=== PATIENT | female | born 1975 | race Caucasian/White ===

== ENCOUNTER 2017-01-28 21:10 | Emergency (ER) | payer OTHER ==
[2017-01-28 21:32] VITALS: BP 157/88; PULSE 80; TEMP 98.4; BMI 25.4
[2017-01-28 22:51] LABS: URINE APPEARANCE CLEAR; URINE BILIRUBIN NEGATIVE (NEGATIVE); URINE COLOR STRAW; URINE GLUCOSE (UA) NEGATIVE (NEGATIVE); URINE KETONE NEGATIVE (NEGATIVE); URINE LEUK ESTERASE NEGATIVE (NEGATIVE); URINE NITRITE NEGATIVE (NEGATIVE); URINE PROTEIN NEGATIVE (NEGATIVE); URINE UROBILINOGEN NEGATIVE E.U./dl (0.2-1.0)
[2017-01-28 22:53] LABS: URINE BLOOD 2+ (NEGATIVE)
[2017-01-28 22:55] LABS: URINE RBC <1 /hpf (0-3); URINE WBC <1 /hpf (3-5)
--- NOTE | 2017-01-28 23:21 | PDOC ---
History of Present Illness - General History Source: Patient Exam Limitations: No Limitations - History of Present Illness Initial Comments: 01/28/17 23:54 The patient is a 41 year old female who is 10 weeks , A1, with no significant past medical history, who presents to the emergency department with vaginal bleeding and back pain. She reports that her vaginal bleeding is mild in nature. She denies any vaginal discharge. She describes her back pain as ranging from mild to moderate, without radiation or modifying factors. The patient denies chest pain, shortness of breath, headache and dizziness. Denies fever, chills, nausea, vomit, diarrhea and constipation. Denies dysuria, frequency, urgency and hematuria. LMP: 11/16/2016 Allergies: None Past surgical history: Social history: No alcohol, tobacco or drug use reported <Juan Gomez - Last Filed: 01/29/17 00:05> <Marichuy Rust - Last Filed: 01/29/17 00:22> - General Chief Complaint: Vaginal Bleeding Stated Complaint: VAGINAL BLEED 10WKS Time Seen by Provider: 01/28/17 21:36 Past History <Juan Gomez - Last Filed: 01/29/17 00:05> - Past Medical History Anemia: No Asthma: No Cancer: No Cardiac Disorders: No CVA: No COPD: No DVT: No Dementia: No Diabetes: No Dialysis: No GI Disorders: No Disorders: No HTN: No Hypercholesterolemia: No HIV: No Kidney Stones: No Liver Disease: No Psychiatric Problems: No Suicide Attempt (Hx): No Seizures: No Thyroid Disease: No Lung CA: No - Surgical History Abdominal Surgery: No Appendectomy: No Cardiac Surgery: No Cholecystectomy: No Gastric Stapling: No GI Surgery: No Lung Surgery: No Neurologic Surgery: No - Reproductive History Is Patient Now?: Yes - Psycho/Social/Smoking Cessation Hx Anxiety: No Suicidal Ideation: No Smoking History: Never smoked Have you smoked in the past 12 months: No Information on smoking cessation initiated: No Hx Alcohol Use: Yes Drug/Substance Use Hx: No Substance Use Type: None <Marichuy Rust - Last Filed: 01/29/17 00:22> - Past Medical History Allergies/Adverse Reactions: Allergies Allergy/AdvReac Type Severity Reaction Status Date / Time No Known Allergies Allergy Verified 01/28/17 21:31 Home Medications: Ambulatory Orders NK [No Known Home Medication] 05/09/14 Review of Systems - Review of Systems Able to Perform ROS?: Yes Comments:: 01/28/17 23:54 GENERAL/CONSTITUTIONAL: No fever or chills. No weakness. HEAD, EYES, EARS, NOSE AND THROAT: No change in vision. No ear pain or discharge. No sore throat. CARDIOVASCULAR: No chest pain or shortness of breath RESPIRATORY: No cough, wheezing, or hemoptysis. GASTROINTESTINAL: No nausea, vomiting, diarrhea or constipation. GENITOURINARY: +Vaginal bleeding. No dysuria, frequency, or change in urination. MUSCULOSKELETAL: +Back pain. No joint or muscle swelling or pain. No neck pain. SKIN: No rash NEUROLOGIC: No headache, vertigo, loss of consciousness, or change in strength/ sensation. ENDOCRINE: No increased thirst. No abnormal weight change HEMATOLOGIC/LYMPHATIC: No anemia, easy bleeding, or history of blood clots. ALLERGIC/IMMUNOLOGIC: No hives or skin allergy. <Juan Gomez - Last Filed: 01/29/17 00:05> *Physical Exam - Vital Signs Last Vital Signs Temp Pulse Resp BP Pulse Ox 98.4 F 80 18 157/88 100 01/28/17 21:31 01/28/17 21:31 01/28/17 21:31 01/28/17 21:31 01/28/17 21:31 - Physical Exam Comments: 01/28/17 23:54 GENERAL: Awake, alert, and fully oriented, in no acute distress HEAD: No signs of trauma, normocephalic, atraumatic EYES: PERRLA, EOMI, sclera anicteric, conjunctiva clear ENT: Auricles normal inspection, hearing grossly normal, nares patent, oropharynx clear without exudates. Moist mucosa NECK: Normal ROM, supple, no lymphadenopathy, JVD, or masses LUNGS: No distress, speaks full sentences, clear to auscultation bilaterally HEART: Regular rate and rhythm, normal S1 and S2, no murmurs, rubs or gallops, peripheral pulses normal and equal bilaterally. ABDOMEN: Soft, nontender, normoactive bowel sounds. No guarding, no rebound. No masses EXTREMITIES: Normal inspection, Normal range of motion, no edema. No clubbing or cyanosis. NEUROLOGICAL: Cranial nerves II through XII grossly intact. Normal speech, normal gait, no focal sensorimotor deficits SKIN: Warm, Dry, normal turgor, no rashes or lesions noted. <Juan Gomez - Last Filed: 01/29/17 00:05> - Vital Signs Last Vital Signs Temp Pulse Resp BP Pulse Ox 98.4 F 80 18 157/88 100 01/28/17 21:31 01/28/17 21:31 01/28/17 21:31 01/28/17 21:31 01/28/17 21:31 <Marichuy Rust - Last Filed: 01/29/17 00:22> ED Treatment Course - ADDITIONAL ORDERS Additional order review: Laboratory Results 01/28/17 01/28/17 22:40 22:40 Beta HCG, Quant [id number] Urine Color Straw Urine Appearance Clear Urine pH 6.0 Ur Specific [place] 1.011 Urine Protein Negative Urine Glucose (UA) Negative Urine Ketones Negative Urine Blood 2+ H Urine Nitrite Negative Urine Bilirubin Negative Urine Urobilinogen Negative Ur Leukocyte Esterase Negative Urine RBC <1 Urine WBC <1 Ur Epithelial Cells Rare - RADIOLOGY Radiograph Interpretation: 01/29/17 00:05 Abdominal ultrasound Reviewed by: Dr. Raffaele Cook Impression: Live IUP with estimated age of 10 weeks, without definite abnormalities. Nonvisualization of the ovaries. <Juan Gomez - Last Filed: 01/29/17 00:05> - ADDITIONAL ORDERS Additional order review: Laboratory Results 01/28/17 22:40 Urine Color Straw Urine Appearance Clear Urine pH 6.0 Ur Specific [place] 1.011 Urine Protein Negative Urine Glucose (UA) Negative Urine Ketones Negative Urine Blood 2+ H Urine Nitrite Negative Urine Bilirubin Negative Urine Urobilinogen Negative Ur Leukocyte Esterase Negative Urine RBC <1 Urine WBC <1 Ur Epithelial Cells Rare <Marichuy Rust - Last Filed: 01/29/17 00:22> Medical Decision Making - Medical Decision Making 01/29/17 00:18 pt denies any history of needing rhogram injection after childbirth pelvic US reveals SL IUP 10 weeks zero days with good heart tones of 168 plan- pt to follow up with her vehicle body sander <Marichuy Rust - Last Filed: 01/29/17 00:22> *DC/Admit/Observation/Transfer - Attestations Scribe Attestion: 01/28/17 23:55 Documentation prepared by Juan Gomez, acting as medical device sales consultant for Marichuy Rust MD <Juan Gomez - Last Filed: 01/29/17 00:05> <Marichuy Rust - Last Filed: 01/29/17 00:22> Diagnosis at time of Disposition: Threatened - Discharge Dispostion Disposition: HOME Condition at time of disposition: Stable - Referrals Referrals: Sudhakar Hernandez MD [Primary Care Provider] - - Patient Instructions Printed Discharge Instructions: DI for Threatened Additional Instructions: please continue your care with your vehicle body sander Print Language: PARAGUAYAN
== END 2017-01-29 00:49 | disposition home or self-care (01) ==
LOC: JER 21:10
DX: O20.0 Threatened abortion (principal); Z3A.10 10 weeks gestation of pregnancy
CPT/HCPCS: 36415; 76801-TC; 81003; 81015; 84702; 99284-25

== ENCOUNTER 2017-08-16 12:35 | Inpatient (IN) | payer OTHER ==
[~2017-08-16 12:35] MED LIST: CITRIC ACID/SODIUM CITRATE 30 ML UNIT-DOSE CUP PO ONE; ELECTROLYTE-148 SOLN 1,000 ML IV SCH
[2017-08-16] MEDS: ELECTROLYTE-148 SOLN 1,000 ML IV SCH (13:10)
[2017-08-16 13:13] VITALS: BMI 31.7
[2017-08-16] MEDS ORDERED: morphine SULFATE/Preservative Free 0.5 MG/ML (1cc Syringe) EP ONE (14:56)
[2017-08-16] MEDS ORDERED: ONDANSETRON 4 MG/2 ML VIAL IVPB PRN (14:56)
[2017-08-16] MEDS ORDERED: IBUPROFEN 800 MG/8 ML IJ IVPB PRN ×2 (14:57→16:35)
--- NOTE | 2017-08-16 16:23 | HP ---
Past Medical History - Primary Care Physician PCP:: Fracisco Tian - Admission Chief Complaint: 39 weeks, previous c/s, AMA, voluntary sterlization .GDM History of Present Illness: 42 yo f edc by sono 09/01/17 with 2 previous c/s, hx og GDM, on glyberide , for repeat c/s and tubal ligation. risks of c/s and tubal ligation discussed , ulternatives explained History Source: Patient Limitations to Obtaining History: Language Barrier - Past Medical History ...: 4 ...Para: 2 ...Term: 2 ...: 0 ...Spon : 1 ...Induced : 0 ...Multiple Gestation: 0 ...LMP: 11/16/16 ... Weeks Gestation by Dates: 39.0 ...EDC by Dates: 08/23/17 ...EDC by Sono: 08/23/17 Endocrine: Yes: Diabetes Mellitus - Past Surgical History Past Surgical History: Yes: Hx Myomectomy: No Hx Transabdominal Cerclage: No - Smoking History Smoking history: Never smoked Have you smoked in the past 12 months: No - Alcohol/Substance Use Hx Alcohol Use: No - Social History Usual Living Arrangement: Yes: With Spouse History of Recent Travel: No Home Medications - Allergies Allergies/Adverse Reactions: Allergies Allergy/AdvReac Type Severity Reaction Status Date / Time No Known Allergies Allergy Verified 08/16/17 13:13 - Home Medications Home Medications: Ambulatory Orders Ferrous Sulfate [Feosol] 325 mg PO DAILY 08/16/17 Glyburide/Metformin HCl [Glyburide-Metformin 2.5-500 mg] 2.5 mg PO DAILY Vitamins (Sjr) - 1 tab PO DAILY 08/16/17 Review of Systems - Review of Systems Constitutional: reports: No Symptoms Eyes: reports: No Symptoms HENT: reports: No Symptoms Neck: reports: No Symptoms Cardiovascular: reports: No Symptoms Respiratory: reports: No Symptoms Gastrointestinal: reports: No Symptoms Genitourinary: reports: No Symptoms Breasts: reports: No Symptoms Reported Musculoskeletal: reports: No Symptoms Integumentary: reports: No Symptoms Neurological: reports: No Symptoms Endocrine: reports: No Symptoms Hematology/Lymphatic: reports: No Symptoms Psychiatric: reports: No Symptoms Physical Exam - Maternity Vital Signs: Vital Signs Temperature 98.4 F 08/16/17 12:50 Pulse Rate 80 08/16/17 12:50 Respiratory Rate 20 08/16/17 12:50 Blood Pressure 135/82 08/16/17 12:50 O2 Sat by Pulse Oximetry (%) Constitutional: Yes: Well Nourished, No Distress, Calm Eyes: Yes: WNL, Conjunctiva Clear, EOM Intact HENT: Yes: WNL, Atraumatic, Normocephalic Neck: Yes: WNL, Supple, Trachea Midline Cardiovascular: Yes: WNL, Regular Rate and Rhythm Breast(s): Yes: WNL - Abdominal Exam/OB Fundal Height: 40 Number of Fetuses: Single Presentation: Vertex Contractions: No Intensity: Unaware Heart Rate Location: [facility] Category: I Accelerations: Uniform Decelerations: None - Vaginal Exam/OB Vaginal Bleediing: No Speculum Exam: No Dilatation (cm): closed Effacement (%): 0 Amniotic Membrane Status: Intact Presentation: Vertex/Position Station: -3 - Physical Exam Musculoskeletal: Yes: WNL Extremities: Yes: WNL Edema: Yes Edema: LLE: Trace, RLE: Trace Deep Tendon Reflex Grade: Normal +2 Psychiatric: Yes: WNL Hemorrhage Risk Assessment - Risk Factors Medium Risk Factors: Yes: Prior , uterine surgery,or multiple laparotomies Risk Score: 1 Risk Level: Medium Risk Problem List - Problems (1) with 39 completed weeks gestation Code(s): Z3A.39 - 39 WEEKS GESTATION OF (2) Previous section complicating Code(s): O34.219 - MATERNAL CARE FOR UNSP TYPE SCAR FROM PREVIOUS DEL (3) Gestational diabetes mellitus (GDM) Code(s): O24.419 - GESTATIONAL DIABETES MELLITUS IN , UNSP CONTROL Qualifiers: Gestational diabetes mellitus control: oral hypoglycemic-controlled Trimester: third trimester Qualified Code(s): O24.415 - Gestational diabetes mellitus in , controlled by oral hypoglycemic drugs; O24.415 - Gestational diabetes mellitus in , controlled by oral hypoglycemic drugs (4) Sterilization Code(s): Z30.2 - ENCOUNTER FOR STERILIZATION (5) Advanced maternal age (AMA) in Code(s): DXX8632 - Assessment/Plan admit for repeat c/s and BTL, risks discussed,
[2017-08-16] MEDS ORDERED: WITCH HAZEL 50% (TUCKS) 40 PAD/JAR PAD TP PRN (16:35)
[2017-08-16] MEDS ORDERED: BENZOCAINE 20% 57 GM BOTTLE TP PRN (16:35)
[2017-08-16] MEDS ORDERED: BENZOCAINE 28 GM HEMORRHOIDAL OINTMENT PR PRN (16:35)
[2017-08-16] MEDS ORDERED: METHYLERGONOVINE MALEATE 0.2 MG/1 ML AMP IM PRN (16:35)
[2017-08-16] MEDS ORDERED: diphenhydrAMINE HCL 25 MG CAPSULE (FP) PO PRN (16:35)
[2017-08-16] MEDS ORDERED: OXYTOCIN 20 UNITS in 0.9% NS 1,000 ML IV SCH (16:45)
[2017-08-16] MEDS ORDERED: DEXTROSE 5%-LACTATED RINGERS 1,000 ML IV SCH (16:45)
--- NOTE | 2017-08-16 17:31 | OP ---
DATE OF OPERATION: 08/16/2017 PREOPERATIVE DIAGNOSES: , 39 weeks, previous section, advanced maternal age, voluntary sterilization, and gestational diabetes. POSTOPERATIVE DIAGNOSES: , 39 weeks, previous section, advanced maternal age, voluntary sterilization, and gestational diabetes. PROCEDURE: Repeat low-segment transverse section and bilateral tubal ligation. SURGEON: Leonard Tian MD CASING OPERATOR: HERB Mclaughlin ANESTHESIA: Spinal. ANESTHESIOLOGIST: Cony Mcwilliams MD ESTIMATED BLOOD LOSS: 500 mL DESCRIPTION OF OPERATION: Patient was taken to the operating room. Under adequate spinal anesthesia, abdomen and perineum were prepped and draped. Pfannenstiel abdominal skin incision was made. Abdominal wall was cut layer by layer until peritoneum was exposed and incised. Upon entering the abdominal cavity, lower uterine segment was identified and uterovesical fold of peritoneum established. Bladder was pushed down. A lower transverse incision was made. Incision extended laterally. Amniotic sac was entered; clear fluid. Head delivered. Nasopharynx was suctioned, and live baby girl was delivered from ROT position. Placenta was delivered manually. Uterine cavity was cleaned of remaining tissue. Then, uterine incision was closed in 2 layers, first layer with 0 Biosyn continuous suture, the second layer with 0 Biosyn imbricating the first layer. Bladder flap was closed with 0 Biosyn continuous suture. Both tubes and ovaries were checked, were normal. No active bleeding was seen rt tube grasped with babcok clamp, dobly tied with 2.0 plains tie, portion of tubes removed , endosalpinx was cauterized, same procedure repeated for oppiste tube.. All the lap pads, sponge, and instrument counts were correct. Then, peritoneum was closed with 0 Biosyn continuous suture. Muscles were brought together with interrupted suture of 0 Biosyn. Fascia was closed with 0 Biosyn continuous suture, subcutaneous fat with interrupted suture of 0 Biosyn, and the skin was closed with zaid. Patient tolerated the procedure well, left the OR in good condition. LEONARD TIAN M.D. /[id number] MTDD
[2017-08-16] MEDS ORDERED: CEFAZOLIN 1 GM/D5W 50 ML IVPB SCH (18:00)
[2017-08-16] MEDS: CEFAZOLIN 1 GM/D5W 50 ML IVPB SCH (23:42)
[2017-08-17] MEDS: CEFAZOLIN 1 GM/D5W 50 ML IVPB SCH (06:10)
--- NOTE | 2017-08-17 08:07 | PN ---
Progress Note (short form) - Note Progress Note: pod 1 doing well, no c/o Last Vital Signs Temp Pulse Resp BP Pulse Ox 98.6 F 82 20 117/76 100 08/17/17 06:00 08/17/17 06:00 08/17/17 07:00 08/17/17 06:00 08/16/17 17:00 abdomen soft, no distension, no cva incision dry, clean no calf tenderness no excess vaginal bleeding plan ambulate , advance diet. cbc Problem List - Problems (1) with 39 completed weeks gestation Code(s): Z3A.39 - 39 WEEKS GESTATION OF (2) Previous section complicating Code(s): O34.219 - MATERNAL CARE FOR UNSP TYPE SCAR FROM PREVIOUS DEL (3) Gestational diabetes mellitus (GDM) Code(s): O24.419 - GESTATIONAL DIABETES MELLITUS IN , UNSP CONTROL Qualifiers: Gestational diabetes mellitus control: oral hypoglycemic-controlled Trimester: third trimester Qualified Code(s): O24.415 - Gestational diabetes mellitus in , controlled by oral hypoglycemic drugs; O24.415 - Gestational diabetes mellitus in , controlled by oral hypoglycemic drugs (4) Sterilization Code(s): Z30.2 - ENCOUNTER FOR STERILIZATION (5) Advanced maternal age (AMA) in Code(s): UCE5226 -
--- NOTE | 2017-08-17 08:25 | PN ---
Progress Note (short form) - Note Progress Note: Post op day#1.S/P C section with BTL under spinal anesthesia with duramorph uneventful.Patient stable and c/o little pain for which she is on medication.No any anesthesia related problem.Patient DC from the anesthesia care.
[2017-08-17] MEDS: IBUPROFEN 600 MG TABLET (FP) PO PRN ×2 (09:46→14:32)
[2017-08-17] MEDS: SIMETHICONE 80 MG TAB.CHEW (FP) PO PRN ×3 (09:46→20:32)
[2017-08-17] MEDS: ENOXAPARIN NA (PORCINE) 40 MG/0.4 ML DISP.SYRIN SQ SCH (09:47)
[2017-08-17] MEDS ORDERED: FLU VACC QS2017-18 36MOS UP/PF 60 MCG/0.5 ML SYRINGE IM ONE (10:00)
[2017-08-17] MEDS ORDERED: DIPHTH,PERTUSS(ACELL),TET 0.5 ML DISP.SYRIN IM ONE (10:00)
[2017-08-17 13:49] LABS: BASOPHIL 0.7 % (0-2.0); EOSINOPHIL 1.3 % (0-4.5); MCH 29.2 pg (25.7-33.7); MCHC 32.6 g/dl (32.0-36.0); MEAN CELL VOLUME 89.7 fl (80-96); MEAN PLT VOLUME 9.5 fl (7.5-11.1); NEUTROPHILS 76.8 % (42.8-82.8); PLATELET COUNT 154 K/MM3 (134-434); RDW 15.9 % (11.6-15.6); WHITE BLOOD COUNT 12.5 K/mm3 (4.0-10.0)
[2017-08-17] MEDS: oxyCODONE HCL 5 MG TABLET PO PRN ×2 (14:31→20:30)
[2017-08-17] MEDS ORDERED: BISACODYL 10 MG SUPP.RECT PR PRN (16:35)
[2017-08-18] MEDS: IBUPROFEN 600 MG TABLET (FP) PO PRN ×3 (05:14→20:25)
[2017-08-18] MEDS: oxyCODONE HCL 5 MG TABLET PO PRN ×3 (05:14→20:28)
[2017-08-18] MEDS: SIMETHICONE 80 MG TAB.CHEW (FP) PO PRN ×3 (05:14→20:29)
--- NOTE | 2017-08-18 07:49 | PN ---
Post Progress Note - Subjective Subjective: 42 yo Para 3 status post repeat , seen and evaluated. Doing well. Post Day: 2 Type of Delivery: Repeat C/S Vital Signs: Vital Signs Temperature 97.4 F L 08/18/17 07:16 Pulse Rate 69 08/18/17 07:16 Respiratory Rate 18 08/18/17 07:16 Blood Pressure 120/68 08/18/17 07:16 O2 Sat by Pulse Oximetry (%) 100 08/16/17 17:00 Breast Exam: Yes: Soft Uterus: Yes: Fundus Firm Incision: Yes: Dressing dry and intact Abdomen/GI: Yes: Abdomen soft Lochia: Yes: Rubra Lochia, amount: Small Extremities: Yes: Calves non-tender Perineum: Yes: Intact - Labs Labs: CBC WBC 12.5 K/mm3 (4.0-10.0) H 08/17/17 08:00 RBC 4.20 M/mm3 (3.60-5.2) 08/17/17 08:00 Hgb 12.3 GM/dL (10.7-15.3) D 08/17/17 08:00 Hct 37.6 % (32.4-45.2) 08/17/17 08:00 MCV 89.7 fl (80-96) 08/17/17 08:00 MCH 29.2 pg (25.7-33.7) 08/17/17 08:00 MCHC 32.6 g/dl (32.0-36.0) 08/17/17 08:00 RDW 15.9 % (11.6-15.6) H 08/17/17 08:00 Plt Count 154 K/MM3 (134-434) 08/17/17 08:00 MPV 9.5 fl (7.5-11.1) 08/17/17 08:00 Neutrophils % 76.8 % (42.8-82.8) 08/17/17 08:00 Lymphocytes % 12.2 % (8-40) D 08/17/17 08:00 Monocytes % 9.0 % (3.8-10.2) 08/17/17 08:00 Eosinophils % 1.3 % (0-4.5) 08/17/17 08:00 Basophils % 0.7 % (0-2.0) 08/17/17 08:00 Problem List - Problems (1) Status post repeat low transverse section Code(s): Z98.891 - HISTORY OF UTERINE SCAR FROM PREVIOUS SURGERY Assessment/Plan Status post Stable Continue routine post op care
[2017-08-18] MEDS: ENOXAPARIN NA (PORCINE) 40 MG/0.4 ML DISP.SYRIN SQ SCH (11:20)
[2017-08-18] MEDS: ACETAMINOPHEN 325 MG TABLET (FP) PO PRN (16:24)
[2017-08-18] MEDS ORDERED: SENNOSIDES/DOCUSATE COMBO (SENNA PLUS) TABLET (UD) PO PRN (22:00)
[2017-08-19] MEDS: oxyCODONE HCL 5 MG TABLET PO PRN ×3 (04:45→16:22)
[2017-08-19] MEDS: SIMETHICONE 80 MG TAB.CHEW (FP) PO PRN ×4 (04:45→21:02)
[2017-08-19] MEDS: IBUPROFEN 600 MG TABLET (FP) PO PRN ×3 (04:45→21:01)
--- NOTE | 2017-08-19 06:23 | PN ---
Post Progress Note - Subjective Subjective: 42 yo Para 3, status post repeat , seen and evaluated. Doing well. Post Day: 3 Type of Delivery: Repeat C/S Vital Signs: Vital Signs Temperature 97.9 F 08/18/17 20:44 Pulse Rate 67 08/18/17 20:44 Respiratory Rate 18 08/18/17 20:44 Blood Pressure 120/65 08/18/17 20:44 O2 Sat by Pulse Oximetry (%) 100 08/16/17 17:00 Breast Exam: Yes: Soft Uterus: Yes: Fundus Firm Incision: Yes: Dressing dry and intact Abdomen/GI: Yes: Abdomen soft, Tolerating PO Lochia: Yes: Rubra Lochia, amount: Small Extremities: Yes: Calves non-tender Perineum: Yes: Intact Activity: Ambulating - Labs Labs: CBC WBC 12.5 K/mm3 (4.0-10.0) H 08/17/17 08:00 RBC 4.20 M/mm3 (3.60-5.2) 08/17/17 08:00 Hgb 12.3 GM/dL (10.7-15.3) D 08/17/17 08:00 Hct 37.6 % (32.4-45.2) 08/17/17 08:00 MCV 89.7 fl (80-96) 08/17/17 08:00 MCH 29.2 pg (25.7-33.7) 08/17/17 08:00 MCHC 32.6 g/dl (32.0-36.0) 08/17/17 08:00 RDW 15.9 % (11.6-15.6) H 08/17/17 08:00 Plt Count 154 K/MM3 (134-434) 08/17/17 08:00 MPV 9.5 fl (7.5-11.1) 08/17/17 08:00 Neutrophils % 76.8 % (42.8-82.8) 08/17/17 08:00 Lymphocytes % 12.2 % (8-40) D 08/17/17 08:00 Monocytes % 9.0 % (3.8-10.2) 08/17/17 08:00 Eosinophils % 1.3 % (0-4.5) 08/17/17 08:00 Basophils % 0.7 % (0-2.0) 08/17/17 08:00 Problem List - Problems (1) Status post repeat low transverse section Code(s): Z98.891 - HISTORY OF UTERINE SCAR FROM PREVIOUS SURGERY Assessment/Plan Status post Stable Continue routine post op care
[2017-08-19 08:43] LABS: BASOPHIL 0.6 % (0-2.0); EOSINOPHIL 3.8 % (0-4.5); MCH 29.3 pg (25.7-33.7); MCHC 33.1 g/dl (32.0-36.0); MEAN CELL VOLUME 88.8 fl (80-96); MEAN PLT VOLUME 8.8 fl (7.5-11.1); NEUTROPHILS 62.2 % (42.8-82.8); PLATELET COUNT 182 K/MM3 (134-434); RDW 15.3 % (11.6-15.6); WHITE BLOOD COUNT 8.9 K/mm3 (4.0-10.0)
[2017-08-19] MEDS: ENOXAPARIN NA (PORCINE) 40 MG/0.4 ML DISP.SYRIN SQ SCH (09:44)
[2017-08-19] MEDS: ACETAMINOPHEN 325 MG TABLET (FP) PO PRN ×2 (09:44→21:00)
[2017-08-19] MEDS: ELECTROLYTE-148 SOLN 1,000 ML IV SCH (19:42)
[2017-08-19 23:14] VITALS: PULSE 70
[2017-08-20 07:25] VITALS: BP 128/84; TEMP 98.1
[2017-08-20] MEDS: ENOXAPARIN NA (PORCINE) 40 MG/0.4 ML DISP.SYRIN SQ SCH (09:13)
[2017-08-20] MEDS: ACETAMINOPHEN 325 MG TABLET (FP) PO PRN (09:13)
[2017-08-20] MEDS: IBUPROFEN 600 MG TABLET (FP) PO PRN (09:13)
[2017-08-20] MEDS: SIMETHICONE 80 MG TAB.CHEW (FP) PO PRN (09:14)
--- NOTE | 2017-08-20 09:36 | DS ---
Physical Exam-KNITTED GOODS SHAPER Vital Signs: Vital Signs Temperature 98.1 F 08/20/17 07:24 Pulse Rate 70 08/19/17 22:00 Respiratory Rate 18 08/20/17 07:24 Blood Pressure 128/84 08/20/17 07:24 O2 Sat by Pulse Oximetry (%) 100 08/16/17 17:00 Constitutional: Yes: Well Nourished Eyes: Yes: Conjunctiva Clear Neck: Yes: Supple Cardiovascular: Yes: Regular Rate and Rhythm Respiratory: Yes: Regular, CTA Bilaterally Gastrointestinal: Yes: Normal Bowel Sounds Vaginal Exam: Yes: Normal Cervix: Yes: Normal Uterus: Yes: Normal Breast(s): Yes: WNL Wound/Incision: Yes: Clean/Dry, [place] Intact Neurological: Yes: Alert, Oriented ...Motor Strength: WNL Psychiatric: Yes: Alert, Oriented Labs: CBC, BMP 08/19/17 07:35 Delivery - Delivery Type of Anesthesia: Spinal Episiotomy/Laceration: None EBL (cc): 500 Delivery, Single - Stages of Labor Date of Delivery: 08/16/17 Time of Delivery: 15:32 Time Placenta Delivered: 15:33 - Condition of Infant Trailer Body Assembler/Lemon Picker Present: Yes Name: Serene Nelson Infant Gender: Female Weight: 7 lb 5 oz Position: Right, OT Total Hours ROM (Hrs/Mins): 0hrs 2min - 1 Minute Total Score: 9 5 Minutes Total Score: 9 - Feeding Plan Initial Plan: Elected not to breastfeed exclusively throughout hospitalization Discharge Summary Reason For Visit: C SECTION Current Active Problems Advanced maternal age (AMA) in (Acute) Gestational diabetes mellitus (GDM) (Acute) with 39 completed weeks gestation (Acute) Previous section complicating (Acute) Status post repeat low transverse section (Acute) Sterilization (Acute) Procedures: Principal: Repeat Low Transverse Hospital Course: Routine Post op care Condition: Good - Instructions Diet, Activity, Other Instructions: Regular diet No driving, no lifting for 4 weeks F/U in clinic for zaid removal in 1 week Referrals: [facility] [Outside] - Home Medications Comprehensive Discharge Medication List: Ambulatory Orders Ferrous Sulfate [Feosol] 325 mg PO DAILY 08/16/17 Glyburide/Metformin HCl [Glyburide-Metformin 2.5-500 mg] 2.5 mg PO DAILY Vitamins (Sjr) - 1 tab PO DAILY 08/16/17
--- NOTE | 2017-08-20 09:42 | DS ---
Physical Exam-CHIEF COOK Vital Signs: Vital Signs Temperature 98.1 F 08/20/17 07:24 Pulse Rate 70 08/19/17 22:00 Respiratory Rate 18 08/20/17 07:24 Blood Pressure 128/84 08/20/17 07:24 O2 Sat by Pulse Oximetry (%) 100 08/16/17 17:00 Constitutional: Yes: Well Nourished Eyes: Yes: Conjunctiva Clear HENT: Yes: Atraumatic Neck: Yes: Supple Cardiovascular: Yes: Regular Rate and Rhythm Respiratory: Yes: Regular Gastrointestinal: Yes: Normal Bowel Sounds Pelvis: Yes: WNL Vaginal Exam: Yes: Normal Cervix: Yes: Normal Uterus: Yes: Normal Wound/Incision: Yes: Clean/Dry, [place] Intact Neurological: Yes: Alert, Oriented ...Motor Strength: WNL Psychiatric: Yes: Alert, Oriented Labs: CBC, BMP 08/19/17 07:35 Delivery - Delivery Type of Anesthesia: Spinal Episiotomy/Laceration: None EBL (cc): 500 Delivery, Single - Stages of Labor Date of Delivery: 08/16/17 Time of Delivery: 15:32 Time Placenta Delivered: 15:33 - Condition of Enrobing Machine Feeder/Mail Processing Associate Present: Yes Name: Serene Nelson Infant Gender: Female Weight: 7 lb 5 oz Position: Right, OT Total Hours ROM (Hrs/Mins): 0hrs 2min - 1 Minute Total Score: 9 5 Minutes Total Score: 9 - [place] Feeding Plan Initial Plan: Elected not to breastfeed exclusively throughout hospitalization Discharge Summary Reason For Visit: C SECTION Current Active Problems Advanced maternal age (AMA) in (Acute) Gestational diabetes mellitus (GDM) (Acute) with 39 completed weeks gestation (Acute) Previous section complicating (Acute) Status post repeat low transverse section (Acute) Sterilization (Acute) - Instructions Referrals: [facility] ([facility] [place]) [Outside] - Home Medications Comprehensive Discharge Medication List: Ambulatory Orders Ferrous Sulfate [Feosol] 325 mg PO DAILY 08/16/17 Glyburide/Metformin HCl [Glyburide-Metformin 2.5-500 mg] 2.5 mg PO DAILY Vitamins (Sjr) - 1 tab PO DAILY 08/16/17
--- NOTE | 2017-08-22 13:25 | PATH ---
Surgical Pathology Report Patient Name: DREA TERAN Med. Rec. #: [id number] /Age/Gender: 1975 (Age: 42) / F Account: [id number] Location: [facility] OBS/ASSISTANT SHIFT SUPERVISOR Taken: 08/16/2017 Received: 08/17/2017 Reported: 08/22/2017 Physicians: Fracisco Tian M.D. Specimen(s) Received A: PLACENTA B: LEFT FALLOPIAN TUBE C: RIGHT FALLOPIAN TUBE Clinical History Final Diagnosis A. PLACENTA, DELIVERY: FOCALLY DISRUPTED THIRD TRIMESTER PLACENTA WITH 3 VESSEL UMBILICAL CORD AND UNREMARKABLE PLACENTAL MEMBRANES. B. LEFT FALLOPIAN TUBE, PARTIAL SALPINGECTOMY: FULL LUMINAL PORTION OF UNREMARKABLE FALLOPIAN TUBE. C. RIGHT FALLOPIAN TUBE, PARTIAL SALPINGECTOMY: FULL LUMINAL PORTION OF UNREMARKABLE FALLOPIAN TUBE. Electronically Signed Sanford Edouard M.D. Gross Description A. The specimen is received fresh labeled placenta and is a 556 gram, 19.5 x 14.0 x 3.3 cm. placenta with attached membranes and umbilical cord. The attached membranes are lopez, translucent with focal opacities and insert marginally. The umbilical cord measures 44 cm. in length and averages 1.2 cm. in diameter. The cord inserts eccentrically, 4.5 cm. to the nearest margin. No true knots or strictures are identified. Cut surface of the umbilical cord reveals 3 vessels. The surface is tillman-blue with minimal fibrin deposition and appropriate caliber vessels. The maternal surface is red-brown with focal defects. Sectioning reveals red-brown, spongy parenchyma. No lesions are identified. New Accounts Representative sections are submitted in three cassettes as follows: 1- membrane rolls and umbilical cord; 2-3- full thickness sections of placenta. B. Received in formalin labeled "portion of left fallopian tube," is a 1.4 cm in length portion of fallopian tube. No fimbria are present. The outer surface is lopez-cooley and smooth. Sectioning reveals an unremarkable lumen. New Accounts Representative sections are submitted in one cassette. C. Received in formalin labeled "portion of right fallopian tube," is a 1.7 cm in length portion of fallopian tube. No fimbria are present. The outer surface is lopez-cooley and smooth. Sectioning reveals an unremarkable lumen. New Accounts Representative sections are submitted in one cassette. DL/08/21/2017 [place]/08/21/2017
== END 2017-08-20 11:30 | disposition home or self-care (01) | DRG 540 ==
LOC: JLDR 12:35 → J3W 17:41
PROVIDERS: ADMIT Obstetrics & Gynecology; ATTEND Obstetrics & Gynecology
PROC: 10D00Z1 Extraction of Products of Conception, Low, Open Approach (ICD-10-PCS; principal; 2017-08-16)
PROC: 0U570ZZ Destruction of Bilateral Fallopian Tubes, Open Approach (ICD-10-PCS; 2017-08-16)
DX: O24.425 Gestational diabetes mellitus in childbirth, controlled by oral hypoglycemic drugs (principal); O34.211 Maternal care for low transverse scar from previous cesarean delivery; Z3A.39 39 weeks gestation of pregnancy; Z37.0 Single live birth; Z30.2 Encounter for sterilization
CPT/HCPCS: 36415; 85025; 88302-TC; 88307-TC; 90686; 90715; G0008

== ENCOUNTER 2020-01-22 21:37 | Emergency (ER) | payer OTHER ==
--- NOTE | 2020-01-22 21:45 | PDOC ---
Rapid Medical Evaluation Time Seen by Provider: 01/22/20 21:41 Medical Evaluation: Allergies Allergy/AdvReac Type Severity Reaction Status Date / Time No Known Allergies Allergy Verified 08/16/17 13:13 01/22/20 21:42 Pt c/o: difficulty swallowing x 1 hour, able to drink water but hurts, no fever, was cooking fish and ate it, s/s began 30 minutes later, no sob , no rash, no itching, ate this fish before pt on brief exam: vss, post palate pink, uvula midline and nonelongated, speaking full sentences, in NAD pt ordered for: none...observe pt to proceed to the ED Discharge Disposition - Diagnosis Sore throat - Referrals - Patient Instructions - Post Discharge Activity
[2020-01-22 21:46] VITALS: BMI 23.9
[2020-01-22] MEDS ORDERED: MAG HYDROX/AL HYDROX/SIMETH 30 ML UNIT-DOSE CUP PO ONE (22:11)
[2020-01-22] MEDS ORDERED: LIDOCAINE VISCOUS 2% ORAL/TOP 20 ML UNIT-DOSE CUP MM ONE (22:11)
--- NOTE | 2020-01-22 22:12 | PDOC ---
History of Present Illness - General Chief Complaint: Choking Sensation Stated Complaint: SORE THROAT/ HEADACHE Time Seen by Provider: 01/22/20 21:41 - History of Present Illness Initial Comments: July Nice is a 44 y/o female with no reported PMH. She presents today because she returned from [place], and started having a headache this evening. Headache is left frontal and posterior. Reports that she does not usually get headaches. She made some fish for dinner and after eating a piece started feeling some mild swelling in her throat. Denies lip or tongue swelling. Does not feel like a fish bone is stuck in her throat. Denies prior allergies. She has ate thie type of fish before. Denies chest pain/shortness of breath. Denies abd pain. Denies urinary symptoms. Denies lower extremity swelling. Denies dizziness. Past History - Past Medical History Allergies/Adverse Reactions: Allergies Allergy/AdvReac Type Severity Reaction Status Date / Time No Known Allergies Allergy Verified 08/16/17 13:13 Home Medications: Ambulatory Orders Ferrous Sulfate [Feosol] 325 mg PO DAILY 08/16/17 Glyburide/Metformin HCl [Glyburide-Metformin 2.5-500 mg] 2.5 mg PO DAILY 08/16/17 Vitamins (Sjr) - 1 tab PO DAILY 08/16/17 Ibuprofen [Motrin -] 600 mg PO Q4H PRN #60 tablet 08/20/17 Famotidine [Pepcid] 20 mg PO DAILY 7 Days #7 tablet 01/23/20 Prednisone [Prednisone 50 MG TABLETS] 40 mg PO DAILY 4 Days #4 tablet 01/23/20 Anemia: No Asthma: No Cancer: No Cardiac Disorders: No CVA: No COPD: No DVT: No Dementia: No Diabetes: Yes (gestational) Dialysis: No GI Disorders: No Disorders: No HTN: No Hypercholesterolemia: No Kidney Stones: No Liver Disease: No Psychiatric Problems: No Seizures: No Thyroid Disease: No Lung CA: No - Surgical History Abdominal Surgery: No Appendectomy: No Cardiac Surgery: No Cholecystectomy: No Gastric Stapling: No GI Surgery: No Lung Surgery: No Neurologic Surgery: No - Psycho Social/Smoking Cessation Hx Smoking History: Never smoked Have you smoked in the past 12 months: No Hx Alcohol Use: No Drug/Substance Use Hx: No Substance Use Type: None Hx Substance Use Treatment: No Review of Systems - Review of Systems Comments:: GENERAL/CONSTITUTIONAL: No fever or chills. No weakness._ HEAD, EYES, EARS, NOSE AND THROAT: No change in vision. No change in hearing. Reports mild throat swelling. CARDIOVASCULAR: No chest pain or shortness of breath_ RESPIRATORY: Denies cough, hemoptysis_ GASTROINTESTINAL: No nausea, vomiting, diarrhea or constipation._ GENITOURINARY: No dysuria, frequency, or change in urination._ MUSCULOSKELETAL: No joint or muscle swelling or pain. No neck or back pain._ SKIN: No rash_ NEUROLOGIC: Reports mild headache. No vertigo, loss of consciousness, or change in strength/sensation._ ENDOCRINE: No increased thirst. No abnormal weight change_ HEMATOLOGIC/LYMPHATIC: No anemia, easy bleeding, or history of blood clots._ ALLERGIC/IMMUNOLOGIC: No hives or skin allergy._ *Physical Exam - Vital Signs Last Vital Signs Temp Pulse Resp BP Pulse Ox 98.9 F 93 H 19 147/99 98 01/22/20 21:40 01/22/20 21:40 01/22/20 21:40 01/22/20 21:40 01/22/20 21:40 - Physical Exam GENERAL: Awake, alert, and oriented to person/place/time, in no acute distress_ HEAD: No signs of trauma, normocephalic, atraumatic _ EYES: PERRLA, EOMI, sclera anicteric, conjunctiva clear_ ENT: Hearing grossly normal, nares patent, oropharynx clear without exudates. No uvular deviation. Moist mucosa. No obvious tongue swelling. No lip swelling. Airway patent. NECK: Normal ROM, supple, no lymphadenopathy, JVD, or masses_ LUNGS: No distress, speaks in full sentences, clear to auscultation bilaterally _ HEART: Regular rate and rhythm, normal S1 and S2, no murmurs appreciated, peripheral pulses normal and equal bilaterally._ ABDOMEN: Soft, nontender, normoactive bowel sounds. No guarding, no rebound. No masses_ EXTREMITIES: Normal inspection, Normal range of motion, no edema. No clubbing or cyanosis_ NEUROLOGICAL: Cranial nerves II through XII grossly intact. Normal speech, normal gait, no focal sensorimotor deficits _ SKIN: Warm, Dry, normal turgor, no rashes or lesions noted. No urticaria. Medical Decision Making - Medical Decision Making 01/22/20 23:01 44F presenting with mild headache and throat swelling. No respiratory distress. Saturating well on room air. Airway patent. -benadryl -tylenol -pedialyte -XR 01/23/20 00:02 XR soft tissue neck shows no foreign body and patent airway. CXR negative for acute intra thoracic pathology. Pt reassessed. Reports feeling much improved. Plan to d/c home on pepcid 20 mg QD for 7 days, prednisone 40 mg QD for 4 days, and benadryl prn. All questions answered. Return precautions given. Pt verbalized understanding and agreement with plan. Discharge - Discharge Information Problems reviewed: Yes Clinical Impression/Diagnosis: Sore throat Condition: Stable Disposition: HOME - Admission No - Additional Discharge Information Prescriptions: Famotidine [Pepcid] 20 mg PO DAILY 7 Days #7 tablet Prednisone [Prednisone 50 MG TABLETS] 40 mg PO DAILY 4 Days #4 tablet - Follow up/Referral Referrals: [facility] [place] [facility] at [place] [Provider Group] Héctor Ramos MD [Staff Physician] - - Patient Discharge Instructions Patient Printed Discharge Instructions: DI for General Allergic Reactions Additional Instructions: Your x-rays did not show any foreign body in your throat. Your airway appears clear on x-ray. Please make a follow up appointment with Dr. Ramos for further allergy testing. Please take prednisone 40 mg once a day for 4 days, pepcid 20 mg once a day for 1 week, and benadryl as needed. If you experience any new, worsening or concerning symptoms, including throat, lip, tongue, or mouth swelling, dizziness, loss of consciousness, severe headache, difficulty breathing, or any other concerns, please return to the emergency department. - Post Discharge Activity
[2020-01-22] MEDS ORDERED: ACETAMINOPHEN 325 MG TABLET (FP) PO ONE (22:14)
[2020-01-22] MEDS ORDERED: predniSONE 20 MG TABLET (UD) PO ONE (22:17)
[2020-01-22] MEDS ORDERED: FAMOTIDINE 20 MG TABLET PO ONE (22:17)
[2020-01-22] MEDS ORDERED: diphenhydrAMINE HCL 25 MG CAPSULE (FP) PO ONE ×2 (22:18→22:50)
[2020-01-22] MEDS ORDERED: LIDOCAINE VISCOUS 2% ORAL/TOP 20 ML UNIT-DOSE CUP ONE (22:22)
[2020-01-22] MEDS ORDERED: MAG HYDROX/AL HYDROX/SIMETH 30 ML UNIT-DOSE CUP ONE (22:22)
[2020-01-22] MEDS ORDERED: ACETAMINOPHEN 325 MG TABLET (FP) ONE (22:22)
[2020-01-22] MEDS ORDERED: predniSONE 20 MG TABLET (UD) ONE (22:49)
[2020-01-22] MEDS ORDERED: FAMOTIDINE 20 MG TABLET ONE (22:50)
--- NOTE | 2020-01-22 23:10 | PDOC ---
Documentation entered by Effie Lopez SCRIBE, acting as scribe for Hollie Crawford DO. Hollie Crawford DO: This documentation has been prepared by the eleibcristóbal, Effie Lopez SCRIBE, under my direction and personally reviewed by me in its entirety. I confirm that the documentation accurately reflects all work, treatment, procedures, and medical decision making performed by me. Attending Attestation - Resident Resident Name: Yg Gould - ED Attending Attestation I have performed the following: I have examined & evaluated the patient, The case was reviewed & discussed with the resident, I agree w/resident's findings & plan, Exceptions are as noted - HPI HPI: 01/22/20 22:11 The patient is a 44-year-old female with no significant past medical history who presents to the emergency department with choking sensation. The patient reports about an hour prior to arrival she was eating fish and rich, following she felt like something is stuck in her throat like she cant swallow. The patient reports associated symptoms of dry mouth. The patient reports she is able to swallow her saliva. Denies known allergies. The patient states she has had this meal before. Denies rashes or itching. Denies shortness of breath. Denies abdominal pain, nausea, and vomiting. The patient reports she recently returned from [place], and since shes been having a gradual left frontal and posterior headache. - Physicial Exam PE: 01/22/20 22:26 GENERAL: Awake, alert, and fully oriented, in no acute distress HEAD: No signs of trauma EYES: PERRLA, EOMI, sclera anicteric, conjunctiva clear ENT: +tolerating secretion, speaking full sentence, posterior pharynx clear, no laceration or swelling, Auricles normal inspection, hearing grossly normal, nares patent, Moist mucosa. No lip swelling, no tongue swelling. NECK: No stridor or bruit. Normal ROM, supple. LUNGS: Breath sounds equal, clear to auscultation bilaterally. No wheezes, and no crackles HEART: Regular rate and rhythm. ABDOMEN: Soft, nontender. EXTREMITIES: Normal range of motion, no edema. NEUROLOGICAL: Cranial nerves II through XII grossly intact. Normal speech, normal gait SKIN:No urticaria. Warm, Dry, normal turgor, no rashes or lesions noted. - Medical Decision Making 03/12/20 23:04 I, Dr. Hollie Crawford, DO, attest that this document has been prepared under my direction and personally reviewed by me in its entirety. I further attest, that it accurately reflects all work, treatment, procedures and medical decision-making performed by me. a/p: 44yo female with a scratchy feeling in her throat after eating fish -denies fish caught in her throat, but feels an odd sensation when she swallows her saliva -no hives, no itching, no urticaria -no f/c -no sob -no tongue or lip swelling -no stridor or wheezing, no bruits -will monitor and reassess -will obtain xrays, will medicate 01/22/20 23:59 no signs of foreign body on imaging 01/23/20 00:05 pt feeling better will po challenge Discharge - Discharge Information Problems reviewed: Yes Clinical Impression/Diagnosis: Sore throat Condition: Stable Disposition: HOME - Additional Discharge Information Prescriptions: Famotidine [Pepcid] 20 mg PO DAILY 7 Days #7 tablet Prednisone [Prednisone 50 MG TABLETS] 40 mg PO DAILY 4 Days #4 tablet - Follow up/Referral Referrals: [facility] [place] Internal [facility] at [place] [Provider Group] Héctor Ramos MD [Staff Physician] - - Patient Discharge Instructions Patient Printed Discharge Instructions: DI for General Allergic Reactions Additional Instructions: Your x-rays did not show any foreign body in your throat. Your airway appears clear on x-ray. Please make a follow up appointment with Dr. Ramos for further allergy testing. Please take prednisone 40 mg once a day for 4 days, pepcid 20 mg once a day for 1 week, and benadryl as needed. If you experience any new, worsening or concerning symptoms, including throat, lip, tongue, or mouth swelling, dizziness, loss of consciousness, severe headache, difficulty breathing, or any other concerns, please return to the emergency department. - Post Discharge Activity
[2020-01-22 23:46] VITALS: TEMP 98
[2020-01-23 00:47] VITALS: BP 132/86; PULSE 79
== END 2020-01-23 00:46 | disposition home or self-care (01) ==
LOC: JER 21:37
DX: J02.9 Acute pharyngitis, unspecified (principal); Z86.32 Personal history of gestational diabetes
CPT/HCPCS: 70360-TC-FY; 71046-TC-FY; 84703; 99284-25

== ENCOUNTER 2021-06-05 22:25 | Emergency (ER) | payer OTHER ==
[2021-06-05 22:33] VITALS: TEMP 98.2; BMI 26.9
[2021-06-05] MEDS ORDERED: ACETAMINOPHEN 325 MG TABLET (FP) PO ONE (23:25)
[2021-06-05] MEDS ORDERED: ACETAMINOPHEN 325 MG TABLET (FP) ONE ×2 (23:47→23:51)
[2021-06-06 00:15] LABS: BASO % 0.7 % (0-2.0); EOS % 4.3 % (0-4.5); HEMATOCRIT 39.1 % (32.4-45.2); HEMOGLOBIN 12.9 GM/dL (10.7-15.3); MCH 27.6 pg (25.7-33.7); MCHC 32.9 g/dl (32.0-36.0); MEAN CELL VOLUME 83.9 fl (80-96); MEAN PLT VOLUME 8.8 fl (7.5-11.1); MONO % 5.6 % (3.8-10.2); NEUT % 59.4 % (42.8-82.8); PLATELET COUNT 247 10^3/uL (134-434); RBC 4.66 M/mm3 (3.60-5.2); RDW 15.4 % (11.6-15.6); WHITE BLOOD COUNT 10.1 K/mm3 (4.0-10.0)
[2021-06-06 00:33] LABS: CHLORIDE 108 mmol/L (98-107); SODIUM 140 mmol/L (136-145)
[2021-06-06 00:35] LABS: CALCIUM 8.6 mg/dL (8.5-10.1)
[2021-06-06 00:36] LABS: ANION GAP 9 MMOL/L (8-16); CO2 23 mmol/L (21-32); GLUCOSE,RANDOM 97 mg/dL (74-106)
[2021-06-06 00:39] LABS: CREATININE 0.6 mg/dL (0.55-1.3); SGOT/AST 15 U/L (15-37); SGPT/ALT 20 U/L (13-61)
[2021-06-06 00:41] LABS: BILIRUBIN,TOTAL 0.2 mg/dL (0.2-1); TOT PROT 7.8 g/dl (6.4-8.2)
[2021-06-06 00:42] LABS: ALK PHOS 100 U/L (45-117)
[2021-06-06 00:48] VITALS: BP 154/93; PULSE 62
== END 2021-06-06 02:04 | disposition home or self-care (01) ==
LOC: JER 22:25
DX: R07.9 Chest pain, unspecified (principal)
CPT/HCPCS: 36415; 71046-TC-FY; 80053; 82550; 84484; 85025; 93005; 93010; 99285-25

== ENCOUNTER 2022-01-16 20:28 | Emergency (ER) | payer OTHER ==
[2022-01-16 20:41] VITALS: TEMP 98; BMI 27.7
[2022-01-16] MEDS ORDERED: ACETAMINOPHEN 1000 MG/100 ML BAG IVPB ONE (21:09)
[2022-01-16] MEDS ORDERED: KETOROLAC TROMETHAMINE 15 MG/ML VIAL IVPUSH ONE (21:09)
[2022-01-16] MEDS ORDERED: METOCLOPRAMIDE HCL INJECTION 10 MG/2 ML VIAL IVPUSH ONE (21:09)
[2022-01-16] MEDS ORDERED: SODIUM CHLORIDE 1,000 ML IV STA (21:09)
[2022-01-16] MEDS ORDERED: METOCLOPRAMIDE HCL INJECTION 10 MG/2 ML VIAL ONE (21:22)
[2022-01-16] MEDS ORDERED: ACETAMINOPHEN INJECTION 100 ML IVPB ONE (21:22)
[2022-01-16] MEDS ORDERED: KETOROLAC TROMETHAMINE 15 MG/ML VIAL ONE (21:23)
[2022-01-16 23:07] VITALS: BP 142/86; PULSE 78
== END 2022-01-16 23:07 | disposition home or self-care (01) ==
LOC: JER 20:28
PROC: 3E0333Z Introduction of Anti-inflammatory into Peripheral Vein, Percutaneous Approach (ICD-10-PCS; principal; 2022-01-16)
PROC: 3E033GC Introduction of Other Therapeutic Substance into Peripheral Vein, Percutaneous Approach (ICD-10-PCS; 2022-01-16)
PROC: 3E0333Z Introduction of Anti-inflammatory into Peripheral Vein, Percutaneous Approach (ICD-10-PCS; 2022-01-16)
PROC: 3E033GC Introduction of Other Therapeutic Substance into Peripheral Vein, Percutaneous Approach (ICD-10-PCS; 2022-01-16)
PROC: 3E0337Z Introduction of Electrolytic and Water Balance Substance into Peripheral Vein, Percutaneous Approach (ICD-10-PCS; 2022-01-16)
DX: G44.209 Tension-type headache, unspecified, not intractable (principal)
CPT/HCPCS: 96361; 96374; 96375; 99284-25

== ENCOUNTER 2022-12-22 12:25 | Emergency (ER) | payer OTHER ==
[2022-12-22 12:31] VITALS: RESP 18; BMI 30.2
[2022-12-22 13:13] LABS: BASO % 0.6 % (0-2.0); EOS % 2.7 % (0-4.5); HEMATOCRIT 38.7 % (32.4-45.2); HEMOGLOBIN 12.9 GM/dL (10.7-15.3); LYMPH % 24.8 % (8-40); MCH 27.8 pg (25.7-33.7); MCHC 33.4 g/dl (32.0-36.0); MEAN CELL VOLUME 83.2 fl (80-96); MONO % 5.9 % (3.8-10.2); PLATELET COUNT 278 10^3/uL (134-434); RBC 4.65 M/mm3 (3.60-5.2); RDW 14.9 % (11.6-15.6); WHITE BLOOD COUNT 11.2 K/mm3 (4.0-10.0)
[2022-12-22 13:48] LABS: ALBUMIN 3.9 g/dl (3.4-5.0); BILIRUBIN,TOTAL 0.3 mg/dL (0.2-1); BLOOD UREA NITROGEN 13.4 mg/dL (7-18); CALCIUM 8.9 mg/dL (8.5-10.1); CHLORIDE 104 mmol/L (98-107); CO2 23 mmol/L (21-32); CREATININE 0.6 mg/dL (0.55-1.3); GLUCOSE,RANDOM 92 mg/dL (74-106); SODIUM 130 mmol/L (136-145)
[2022-12-22 13:49] LABS: ALK PHOS 85 U/L (45-117); TOT PROT 8.6 g/dl (6.4-8.2)
[2022-12-22 13:52] LABS: N-TERMINAL BNP 9.5 pg/ml (5-125)
[2022-12-22 14:02] LABS: MAGNESIUM 2.5 mg/dL (1.8-2.4)
[2022-12-22] MEDS ORDERED: SODIUM CHLORIDE 0.9% 500 ML INFUS.BAG IV ONE (14:02)
[2022-12-22 14:06] LABS: ANION GAP 4 MMOL/L (8-16); SGOT/AST 116 U/L (15-37); SGPT/ALT 24 U/L (13-61)
[2022-12-22 14:47] VITALS: BP 143/82; PULSE 82; TEMP 98
[2022-12-22 16:57] LABS: ALBUMIN 3.8 g/dl (3.4-5.0); BLOOD UREA NITROGEN 12.2 mg/dL (7-18); CALCIUM 8.8 mg/dL (8.5-10.1)
[2022-12-22 17:00] LABS: CREATININE 0.5 mg/dL (0.55-1.3)
[2022-12-22 17:02] LABS: BILIRUBIN,TOTAL 0.3 mg/dL (0.2-1); TOT PROT 7.3 g/dl (6.4-8.2)
== END 2022-12-22 17:42 | disposition home or self-care (01) ==
LOC: JER 12:25
DX: I10 Essential (primary) hypertension (principal)
CPT/HCPCS: 0241U-QW; 36415; 71045-TC-FY; 80053; 83735; 83880; 84484; 85025; 93005; 93010; 99285-25